=== PATIENT | female | born 1985 | race Caucasian/White ===

== ENCOUNTER 2017-03-30 20:34 | Emergency (ER) | payer SELFPAY ==
[~2017-03-30] VITALS: Ht 165.1 cm; Wt 90.9 kg
[2017-03-30 21:16] VITALS: BP 127/83; PULSE 79; RESP 18; O2SAT 97
--- NOTE | 2017-03-30 21:43 | ED.REPORT ---
HPI-Rash / Abscess Date of Service Mar 30, 2017 ED Provider: Pedro White DO The patient is a 31 year old female who presents to the ED due to an abscess on her right middle finger onset 3 days ago. The abscess is red, swollen, tender, and hurts to touch. Nursing Notes Stated Complaint: RIGHT HAND MIDDLE FINGER SWELLING Chief Complaint: Skin Rash/Abscess Nursing Notes Reviewed: Yes Allergies: Coded Allergies: No Known Allergies (Unverified , 03/30/17) General Time Seen by MD: 21:43 Chief Complaint Abscess Hx Obtained From: Patient Arrived By: Walk-in Onset Occurred: 3 days ago Symptom Duration: Since onset Past Medical History Past Medical History denies Past Surgical History Reports: Smoking History Unknown if Ever Smoker Social History Alcohol Use: "Social" Drug Use: THC Other Social History: Good social support, Local resident Ambulatory Status Independent Review of Systems Constitutional: Denies: Chills, Fever Musculoskeletal: Reports: Joint swelling Skin: Reports Swelling (abcess on right middle finger), Denies Diaphoresis, Denies Rash Complete sys rev & neg: except as marked. Physical Exam Initial Vital Signs Vital Signs (First) Date Time Temp Pulse Resp B/P Pulse Ox O2 Delivery O2 Flow Rate FiO2 03/30/17 21:16 36.7 79 18 127/83 97 Room Air Initial VS: Reviewed Head / Eyes: Atraumatic, Normocephalic, PERRL ENT: Mucous membranes moist Respiratory: Breath sounds normal, Clear to auscultation Cardiovascular: Regular rate & rhythm, Heart sounds normal Abdomen / GI: Soft, Non-tender, No guarding, No rebound Extremities: Vascular intact, Neuro intact, No swelling, No tenderness Neurologic: Alert, Oriented General/Constitutional: Awake, Alert, Cooperative, Not toxic appearing Abscess Notes: paronychial abscess on right middle finger Abscess #1 Location/Condition: Positive: Location (right middle finger ) Procedures Incision & Drainage Abscess Time: 22:26 Procedure Performed by: ED physician, ED resident Consent / Setup / Site Prep: Informed consent provided, Consent from patient Location of Abscess: right middle finger Local Anesthesia: Lidocaine 2% Incised Abscess with Scalpel: #10 Pus Drained: Large, Purulent discharge Post-Procedure / Complications: Packing placed, Dressing applied, No complications, Condition improved, Tolerated procedure well, Patient stable Re-Eval/Medical Decision Med Decision/Clinical Course The abscess was drained without any complications. We were careful to avoid the tendons. She looked and felt much better post drainage. Re-Evaluation/Progress : Time of Eval: 20:11 Patient Status: Moderate relief Re-Evaluation/Progress Note: Digital block performed 2010 by ED physician and Med student. Used 2% lidocaine. Pt tolerated procedure well. Counseled Regarding: Diagnosis, Lab results, Need for follow-up, When/why to return to ED Discharge & Departure Impression: Primary Impression: Paronychia of finger of right hand Disposition: Home Discharge Condition All VS Reviewed: Yes Condition: Stable Patient Instructions: Paronychia (ED) Additional Instructions: Soaked her finger in Epsom salts baths. By a bag of Epson salts and reconstructions. This will help the pus from reaccumulating. Take Bactrim twice daily for 5 days. Take Keflex 4 times daily for 5 days. This is to treat the underlying infection. Take 1-2 [place] every 6 hours as needed for severe pain. Do not drive or drink alcohol or consume acetaminophen while taking the [place]. This should be rechecked in about 48 hours as it sometimes requires a repeat drainage. Follow up either here, the urgent care or with your primary care physician. Do not hesitate to return if any problems or any new or worsening symptoms. Referrals: NOPCP (PCP) Marie Medrano MD Attestation Portion of this note were transcribed by Jael Ramirez. I, Dr. White, personally performed the history, physical exam, and medical decision-making: I reviewed and confirmed the accuracy for the information in the transcribed note. Signed by: chaim Rivera, 03/30/17 2300 copies to: JUAN; [facility] Pedro White DO Mar 30, 2017 21:43 Jael Ramirez Mar 30, 2017 21:56 Pedro White DO Mar 30, 2017 21:43 Jael Ramirez Mar 30, 2017 21:56 Jael Ramirez Mar 30, 2017 21:56
[2017-03-30] MEDS ORDERED: Lidocaine 2% 50 mL Inj NERVEBLOCK ONE (21:50)
[2017-03-30] MEDS ORDERED: Trimethoprim-Sulfa 160 mg-800 mg Tablet PO ONE (22:25)
== END 2017-03-30 22:55 | disposition home or self-care (01) ==
LOC: SED 20:34
DX: L03.011 Cellulitis of right finger (principal)